=== PATIENT | male | born 1940 | race Caucasian/White ===

== ENCOUNTER → 2016-08-23 | Outpatient (CLI) | payer OTHER, MEDICARE ==
[~2016-08-23] MED LIST: ALEV220C2 PO; ASPI1TAB PO; ATOR40TA PO; GLIM4TAB PO; INVO300T PO; JANU50TA8 PO; KETO0.05 TOP; LEVE1INJ5 SQ; LISI40TAB PO
--- NOTE | 2016-08-23 07:12 | REP ---
Clinical: Preoperative assessment . Comparison: None . Technique: PA and lateral. Findings: The mediastinum and cardiac silhouette are normal. Airway appears patent and midline. The lung nowak demonstrate mild chronic-appearing basilar changes without acute consolidation, effusion, or pneumothorax. The skeletal structures are intact and normal. Impression: 1. No acute cardiopulmonary process. Signed by Arnaldo Truong MD 08/23/2016 07:03 A
[2016-08-23 07:51] LABS: CREATININE FOR GFR 1.42 MG/DL (0.70-1.30); GLOMERULAR FILTRATION RATE 51.9 (>42); POTASSIUM SERUM 4.4 MEQ/L (3.5-5.1)
--- NOTE | 2016-08-23 16:12 | ECGEPIP ---
Stationary ECG Study [facility] Test Date: 2016-08-23 Pat Name: JACQUIE MARSHALL Department: Room: - Gender: M Electrical Equipment Assembler: AGUSTO : 1940 Requested By: Liborio Son Order Number: [id number] Reading MD: Liborio Robbins Measurements Intervals [place] Rate: 72 P: 68 SD: 163 QRS: 56 QRSD: 101 T: 41 QT: 376 QTc: 413 Interpretive Statements SINUS RHYTHM Comparison tracing not on file Electronically Signed On 08-23-2016 16:12:30 EDT by Liborio Robbins
== END ==
LOC: M LAB 06:20
PROVIDERS: ATTEND Ophthalmology
DX: Z01.818 Encounter for other preprocedural examination (principal); H25.12 Age-related nuclear cataract, left eye; E11.9 Type 2 diabetes mellitus without complications; I10 Essential (primary) hypertension

== ENCOUNTER → 2016-09-08 | Day surgery (SDC) | payer OTHER, MEDICARE ==
[~2016-09-08] VITALS: Ht 180.3 cm; Wt 81.6 kg
[~2016-09-08] MED LIST changes: +ACETYLCHOLINE OPHTH SOLN 1% 2ML (MIOCHOL-E) As Ordered ONE; +BALANCED SALT IRRIGATION SOL 500ML GLASS BOTTLE (FOR OR EYE COMPOUND) As Ordered ONE; +BALANCED SALT IRRIGATION SOLUTION 500ML BAG (FOR OR EYE MACHINE) As Ordered ONE; +CEFUROXIME 1MG/0.1ML INTRACAMERAL INJ As Ordered ONE; +D5W/0.2% SODIUM CHLORIDE 250 ML IV ONE; +DUOVISC (0.50ML VISCOAT/0.55ML PROVISC) OPHTH KIT As Ordered ONE; +LIDOCAINE 0.75%/EPINEPHRINE 0.025% IN BSS 1ML SYR INTRACAMERAL (OR ONLY) As Ordered ONE; +LIDOCAINE 4% INJ 5 ML AMP As Ordered ONE; +MIDAZOLAM INJ 2 MG/2 ML VIAL (J2250) As Ordered ONE; +OFLOXACIN 0.3 % (OCUFLOX) OPTH SOL 5ML OS ONE; +PHENYLEPHRINE 2.5% OPHTH SOL 2ML OS ONE; +POVIDONE-IODINE 5% OPHTH PREP SOL 30ML As Ordered ONE; +PROPARACAINE 0.5% OPHTH SOL 15ML OS ONE; +TROPICAMIDE 1% OPHTH SOLN 2ML OS ONE; +fentaNYL 100 MCG/2 ML INJECTION (J3010) As Ordered ONE
[2016-09-08 15:50] VITALS: BP 118/69
--- NOTE | 2016-09-09 09:31 | RO ---
DATE OF PROCEDURE: 09/08/2016 PREOPERATIVE DIAGNOSIS: Visually significant nuclear sclerotic cataract left eye. POSTOPERATIVE DIAGNOSIS: Visually significant nuclear sclerotic cataract left eye. PROCEDURE: Cataract extraction with use of phacoemulsification, and placement of intraocular lens, AU00T0, 20.5, left eye. SURGEON: Philip Montoya DO ROUND BONER: ANESTHESIA: Local with monitored anesthesia care (MAC). COMPLICATIONS: None. POSTOPERATIVE CONDITION: Stable. INDICATION FOR SURGERY: Blurred vision left eye affecting patient's activities of daily living. DESCRIPTION OF PROCEDURE: The patient was seen in the preoperative area and properly identified. The correct operative eye was identified and marked. Attention was turned to that eye. The patient received topical antibiotics in the preoperative area. The patient then received topical dilating drops consisting of Tropicamide and Phenylephrine. The patient was then transferred to the operating room. The correct side was re-identified. The patient received topical anesthetics and antibiotics on the surface of the eye. The eye was prepped and draped in a sterile fashion. The upper and lower eyelids were isolated with Tegaderm tape, and the lids were held open with an adjustable speculum. Using a sideport blade, a paracentesis incision was made. Intraocular preservative-free lidocaine was then injected into the anterior chamber. Viscoelastic was then injected into the anterior chamber through the paracentesis. Using a 2.6 mm sharp-tipped keratome, the anterior chamber was entered via a temporal clear corneal incision. A continuous curvilinear capsulorrhexis was created with the aid of a 26g cystotome and utrata forceps. Hydrodissection was performed with balanced salt solution (BSS) on a blunt cannula until the nucleus was freely mobile. The crystalline lens was phacoemulsified and aspirated. Additional cohesive viscoelastic was placed into the capsular bag to deepen it. AU00T0, 20.5 lens D was placed into the capsular bag and confirmed by visualizing the continuous curvilinear capsulorrhexis. Additional irrigation and aspiration was used to remove cortical material and remaining viscoelastic. The clear corneal incision was hydrated with BSS on a blunt cannula. The lens was well positioned. The incisions were then tested for leaks and found to be negative. The eye was then palpated for appropriate pressure and adjusted accordingly with BSS. The eyelid speculum was carefully removed. A shield was then secured over the eye.. The patient tolerated the procedure well and was discharged to the recovery unit in a stable condition. MARVIN
== END | disposition home or self-care (01) ==
LOC: M SDC 12:11
PROVIDERS: ATTEND Ophthalmology
DX: H25.13 Age-related nuclear cataract, bilateral (principal); I10 Essential (primary) hypertension; E11.9 Type 2 diabetes mellitus without complications; E78.5 Hyperlipidemia, unspecified; Z88.2 Allergy status to sulfonamides; Z79.899 Other long term (current) drug therapy; Z87.891 Personal history of nicotine dependence
CPT/HCPCS: 66984; J2250; J3010

== ENCOUNTER → 2016-09-22 | Day surgery (SDC) | payer OTHER, MEDICARE ==
[~2016-09-22] VITALS: Ht 180.3 cm; Wt 81.6 kg
[~2016-09-22] MED LIST changes: -ATOR40TA PO; +ATOR40TA75 PO; -BALANCED SALT IRRIGATION SOL 500ML GLASS BOTTLE (FOR OR EYE COMPOUND) As Ordered ONE; -D5W/0.2% SODIUM CHLORIDE 250 ML IV ONE; +LR 500 ML IV ONE; +OFLOXACIN 0.3 % (OCUFLOX) OPTH SOL 5ML OD ONE; -OFLOXACIN 0.3 % (OCUFLOX) OPTH SOL 5ML OS ONE; +PHENYLEPHRINE 2.5% OPHTH SOL 2ML OD ONE; -PHENYLEPHRINE 2.5% OPHTH SOL 2ML OS ONE; +PROPARACAINE 0.5% OPHTH SOL 15ML OD ONE; -PROPARACAINE 0.5% OPHTH SOL 15ML OS ONE; +TROPICAMIDE 1% OPHTH SOLN 2ML OD ONE; -TROPICAMIDE 1% OPHTH SOLN 2ML OS ONE
[2016-09-22 15:34] VITALS: BP 111/63
--- NOTE | 2016-09-23 22:20 | RO ---
DATE OF PROCEDURE: 09/22/2016 PREOPERATIVE DIAGNOSIS: Visually significant nuclear sclerotic cataract right eye. POSTOPERATIVE DIAGNOSIS: Visually significant nuclear sclerotic cataract right eye. PROCEDURE: Cataract extraction with use of phacoemulsification, and placement of intraocular lens, AU00T0, 20.0 D, right eye. SURGEON: Philip Montoya DO COUTURIERE: ANESTHESIA: Local with monitored anesthesia care (MAC). COMPLICATIONS: None. POSTOPERATIVE CONDITION: Stable. INDICATION FOR SURGERY: Blurred vision right eye affecting patient's activities of daily living. DESCRIPTION OF PROCEDURE: The patient was seen in the preoperative area and properly identified. The correct operative eye was identified and marked. Attention was turned to that eye. The patient received topical antibiotics in the preoperative area. The patient then received topical dilating drops consisting of Tropicamide and Phenylephrine. The patient was then transferred to the operating room. The correct side was re-identified. The patient received topical anesthetics and antibiotics on the surface of the eye. The eye was prepped and draped in a sterile fashion. The upper and lower eyelids were isolated with Tegaderm tape, and the lids were held open with an adjustable speculum. Using a sideport blade, a paracentesis incision was made. Intraocular preservative-free lidocaine was then injected into the anterior chamber. Viscoelastic was then injected into the anterior chamber through the paracentesis. Using a 2.6 mm sharp-tipped keratome, the anterior chamber was entered via a temporal clear corneal incision. A continuous curvilinear capsulorrhexis was created with the aid of a 26g cystotome and utrata forceps. Hydrodissection was performed with balanced salt solution (BSS) on a blunt cannula until the nucleus was freely mobile. The crystalline lens was phacoemulsified and aspirated. Additional cohesive viscoelastic was placed into the capsular bag to deepen it. An AU00T0 20.0 D lens was placed into the capsular bag and confirmed by visualizing the continuous curvilinear capsulorrhexis. Additional irrigation and aspiration was used to remove cortical material and remaining viscoelastic. The clear corneal incision was hydrated with BSS on a blunt cannula. The lens was well positioned. The incisions were then tested for leaks and found to be negative. The eye was then palpated for appropriate pressure and adjusted accordingly with BSS. The eyelid speculum was carefully removed. A shield was placed over the eye. The patient tolerated the procedure well and was discharged to the recovery unit in a stable condition. MARVIN
== END | disposition home or self-care (01) ==
LOC: M SDC 13:14
PROVIDERS: ATTEND Ophthalmology
DX: H25.11 Age-related nuclear cataract, right eye (principal); E11.9 Type 2 diabetes mellitus without complications; I10 Essential (primary) hypertension; E78.5 Hyperlipidemia, unspecified; Z87.891 Personal history of nicotine dependence; Z79.899 Other long term (current) drug therapy; Z88.2 Allergy status to sulfonamides; Z79.82 Long term (current) use of aspirin
CPT/HCPCS: 66984; J2250; J3010

== ENCOUNTER 2017-07-06 09:42 | Day surgery (SDC) | payer BC, MEDICARE ==
[2017-07-06] MEDS: NS 1,000 ML IV (10:00)
[2017-07-06 10:56] LABS: BEDSIDE GLUCOSE 114 MG/DL (83-110)
[2017-07-06] MEDS ORDERED: LIDOCAINE 2% INJ 100 MG/5 ML SDV (FOR ANES.) As Ordered (11:34)
[2017-07-06] MEDS ORDERED: PROPOFOL 200 MG/20 ML VIAL As Ordered (11:34)
== END 2017-07-06 12:24 | disposition home or self-care (01) ==
LOC: M OPP 09:42
DX: Z12.11 Encounter for screening for malignant neoplasm of colon (principal); E10.9 Type 1 diabetes mellitus without complications; E78.00 Pure hypercholesterolemia, unspecified; Z79.4 Long term (current) use of insulin; Z79.82 Long term (current) use of aspirin; Z79.899 Other long term (current) drug therapy
CPT/HCPCS: 45378

== ENCOUNTER → 2021-09-10 | Outpatient (CLI) | payer BC, MEDICARE ==
[~2021-09-10] MED LIST changes: -ACETYLCHOLINE OPHTH SOLN 1% 2ML (MIOCHOL-E) As Ordered ONE; +ALEV220T22 PO; -ASPI1TAB PO; +ASPI81TA26 PO; -BALANCED SALT IRRIGATION SOLUTION 500ML BAG (FOR OR EYE MACHINE) As Ordered ONE; -CEFUROXIME 1MG/0.1ML INTRACAMERAL INJ As Ordered ONE; -DUOVISC (0.50ML VISCOAT/0.55ML PROVISC) OPHTH KIT As Ordered ONE; -GLIM4TAB PO; +GLIM4TAB5 PO; +HUMA100I5; -LIDOCAINE 0.75%/EPINEPHRINE 0.025% IN BSS 1ML SYR INTRACAMERAL (OR ONLY) As Ordered ONE; -LIDOCAINE 4% INJ 5 ML AMP As Ordered ONE; +LISI40TA4 PO; -LISI40TAB PO; -LR 500 ML IV ONE; -MIDAZOLAM INJ 2 MG/2 ML VIAL (J2250) As Ordered ONE; -OFLOXACIN 0.3 % (OCUFLOX) OPTH SOL 5ML OD ONE; -PHENYLEPHRINE 2.5% OPHTH SOL 2ML OD ONE; -POVIDONE-IODINE 5% OPHTH PREP SOL 30ML As Ordered ONE; -PROPARACAINE 0.5% OPHTH SOL 15ML OD ONE; -TROPICAMIDE 1% OPHTH SOLN 2ML OD ONE; -fentaNYL 100 MCG/2 ML INJECTION (J3010) As Ordered ONE
[2021-09-10 15:39] LABS: BASO # 0.2 10^3/uL (0.0-0.2); BASO % 1.5 % (0.0-1.0); EOS % 9.9 % (0.0-3.0); HEMATOCRIT 44.4 % (42.0-52.0); HEMOGLOBIN 14.4 g/dl (13.5-17.5); LYMPH # 1.7 10^3/uL (1.5-5.0); MEAN CORPUSCULAR HEMOGLOBIN 31.5 pg (27.0-33.0); MEAN CORPUSCULAR HGB CONC 32.4 g/dl (32.0-36.5); MEAN CORPUSCULAR VOLUME 97.2 fl (80.0-96.0); MONO # 0.9 10^3/uL (0.0-0.8); NEUTROPHILS # 6.2 10^3/uL (1.5-8.5); NEUTROPHILS % 62.1 % (36.0-66.0); PLATELET COUNT, AUTOMATED 309 10^3/uL (150-450); RED BLOOD COUNT 4.57 10^6/uL (4.30-6.10)
[2021-09-10 15:56] LABS: HEMOGLOBIN A1c 7.3 %
[2021-09-10 16:04] LABS: ALBUMIN 3.4 GM/DL (3.2-5.2); BILIRUBIN,TOTAL 0.9 MG/DL (0.2-1.0); CALCIUM LEVEL 8.9 MG/DL (8.8-10.2); CREATININE FOR GFR 1.74 MG/DL (0.70-1.30); GLOMERULAR FILTRATION RATE 40.5 (>42); POTASSIUM SERUM 4.7 MEQ/L (3.5-5.1)
== END ==
LOC: M PLALAB 11:00
PROVIDERS: ATTEND Family Medicine
DX: Z01.818 Encounter for other preprocedural examination (principal); Z79.899 Other long term (current) drug therapy

== ENCOUNTER 2021-09-13 14:41 | Inpatient (IN) | payer BC, MEDICARE ==
[~2021-09-13] VITALS: Ht 175.3 cm; Wt 74.6 kg
[~2021-09-13 14:41] MED LIST changes: -ALEV220T22 PO; -HUMA100I5
[2021-09-13] MEDS ORDERED: LR 1,000 ML IV SCH ×2 (14:45→21:20)
[2021-09-13] MEDS ORDERED: ALEV220T22 PO (15:29)
[2021-09-13] MEDS ORDERED: HUMA100I5 (15:33)
[2021-09-13] MEDS ORDERED: MIDAZOLAM INJ 2MG/2ML VIAL (J2250 PER 1MG) As Ordered ONE (19:46)
[2021-09-13] MEDS ORDERED: fentaNYL 100 MCG/2 ML INJECTION As Ordered ONE (19:46)
[2021-09-13] MEDS ORDERED: LIDOCAINE 2% W/EPINEPHRINE 20ML VIAL **PRES FREE As Ordered ONE (19:46)
[2021-09-13] MEDS ORDERED: propofoL 200 MG/20 ML VIAL As Ordered ONE (19:46)
[2021-09-13] MEDS ORDERED: BUPIVACAINE HCL 0.25% 30ML VIAL As Ordered ONE (19:48)
[2021-09-13] MEDS ORDERED: ceFAZolin 1GM VIAL (J0690 PER 500MG) As Ordered ONE (20:02)
[2021-09-13] MEDS ORDERED: VANCOMYCIN 1000MG/20ML VIAL As Ordered ONE (20:02)
[2021-09-13] MEDS ORDERED: ACETAMINOPHEN 1000MG 100ML IV BTL (OFIRMEV) (J0131 PER 10MG) As Ordered ONE (20:10)
[2021-09-13] MEDS ORDERED: dexameTHASONE 4 MG/ML 1ML VIAL (J1100 PER 1MG) As Ordered ONE (20:11)
[2021-09-13] MEDS ORDERED: ONDANSETRON 4MG 2ML VIAL As Ordered ONE (20:11)
[2021-09-13] MEDS ORDERED: PHENYLephrine 500MCG 5ML (100MCG/ML) SYRINGE As Ordered ONE (20:16)
[2021-09-13] MEDS ORDERED: PERCOCET 5MG/325MG TAB PO PRN (21:20)
[2021-09-13] MEDS ORDERED: MORPHINE 4 MG/ML 1ML VIAL/SYRINGE IV PRN (21:30)
[2021-09-13] MEDS ORDERED: IBUPROFEN 600MG TAB PO PRN (21:30)
[2021-09-13] MEDS ORDERED: oxyCODONE 5MG TAB PO PRN (21:30)
[2021-09-13] MEDS ORDERED: ACETAMINOPHEN TAB 650MG DOSE (2X325MG) PO PRN (21:30)
[2021-09-13 22:00] VITALS: BP 138/76
[2021-09-13 22:30] VITALS: BP 124/98
[2021-09-13] MEDS ORDERED: MAALOX 30 ML SUSP *UDC PO PRN (22:40)
[2021-09-13] MEDS ORDERED: GLUCAGON INJ 1MG VIAL SC PRN (22:40)
[2021-09-13] MEDS ORDERED: GLUCOSE 4GM CHEW TABLET PO PRN (22:40)
[2021-09-13] MEDS ORDERED: DEXTROSE 50% 50 ML SYRINGE IV PRN (22:40)
[2021-09-13] MEDS ORDERED: MOM 30ML SUSPENSION UDC PO PRN (22:40)
[2021-09-13] MEDS: PIPERACILLIN/TAZOBACTAM SOD 2.25 GM in D5W MINI-BAG PLUS 50 ML IV SCH (23:36)
[2021-09-13] MEDS: INSULIN LISPRO (NovoLOG) PER UNIT SC SCH (23:41)
[2021-09-14] VITALS (12 sets, daily range): BP systolic 95–132; BP diastolic 52–73; O2SAT 95–98
[2021-09-14 00:16] LABS: BASO # 0.1 10^3/uL (0.0-0.2); BASO % 0.9 % (0.0-1.0); EOS # 0.2 10^3/uL (0.0-0.5); EOS % 1.3 % (0.0-3.0); HEMATOCRIT 44.8 % (42.0-52.0); HEMOGLOBIN 14.1 g/dl (13.5-17.5); LYMPH # 0.7 10^3/uL (1.5-5.0); MEAN CORPUSCULAR HEMOGLOBIN 30.5 pg (27.0-33.0); MEAN CORPUSCULAR HGB CONC 31.5 g/dl (32.0-36.5); MONO # 0.2 10^3/uL (0.0-0.8); MONO % 1.1 % (2.0-8.0); NEUTROPHILS # 12.3 10^3/uL (1.5-8.5); NEUTROPHILS % 90.8 % (36.0-66.0); PLATELET COUNT, AUTOMATED 261 10^3/uL (150-450); RED BLOOD COUNT 4.62 10^6/uL (4.30-6.10); WHITE BLOOD COUNT 13.5 10^3/uL (4.0-10.0)
[2021-09-14 00:32] LABS: ALBUMIN 3.3 GM/DL (3.2-5.2); BILIRUBIN,TOTAL 0.7 MG/DL (0.2-1.0); CREATININE FOR GFR 1.33 MG/DL (0.70-1.30); GLOMERULAR FILTRATION RATE 55.2 (>42); MAGNESIUM LEVEL 1.9 MG/DL (1.8-2.4); POTASSIUM SERUM 4.6 MEQ/L (3.5-5.1); TOTAL PROTEIN 6.8 GM/DL (6.4-8.2)
[2021-09-14] MEDS: PIPERACILLIN/TAZOBACTAM SOD 2.25 GM in D5W MINI-BAG PLUS 50 ML IV SCH (04:56)
[2021-09-14 06:07] LABS: HEMATOCRIT 41.4 % (42.0-52.0); HEMOGLOBIN 13.7 g/dl (13.5-17.5); MEAN CORPUSCULAR HEMOGLOBIN 31.6 pg (27.0-33.0); MEAN CORPUSCULAR HGB CONC 33.1 g/dl (32.0-36.5); MEAN CORPUSCULAR VOLUME 95.4 fl (80.0-96.0); PLATELET COUNT, AUTOMATED 294 10^3/uL (150-450); RED BLOOD COUNT 4.34 10^6/uL (4.30-6.10); WHITE BLOOD COUNT 8.1 10^3/uL (4.0-10.0)
[2021-09-14 06:32] LABS: C REACTIVE PROTEIN QUANTITATIV 0.3 MG/DL (0.00-0.30); CALCIUM LEVEL 9.6 MG/DL (8.8-10.2); CREATININE FOR GFR 1.32 MG/DL (0.70-1.30); GLOMERULAR FILTRATION RATE 55.7 (>42)
[2021-09-14] MEDS: ASPIRIN 81MG ENTERIC TABLET PO SCH (07:42)
[2021-09-14] MEDS: INSULIN LISPRO (NovoLOG) PER UNIT SC SCH ×4 (07:42→20:26)
[2021-09-14] MEDS: lisinopriL 40MG TAB PO SCH (09:00)
[2021-09-14] MEDS: VANCOMYCIN HCL 1,000 MG, VIAL MATE ADAPTER 1 EACH in D5W 250 ML IV SCH ×2 (09:26→20:25)
[2021-09-14] MEDS: PIPERACILLIN/TAZOBACTAM SOD 3.375 GM in D5W MINI-BAG PLUS 50 ML IV SCH ×3 (11:57→22:43)
[2021-09-14] MEDS: ENOXAPARIN 40MG/0.4ML SYRINGE (J1650 PER 10MG) SC SCH (20:25)
[2021-09-14] MEDS: LEVEMIR (INSULIN DETEMIR) 1 UNITS/0.01ML SC SCH (20:26)
[2021-09-14] MEDS: ATORVASTATIN 20 MG TAB PO SCH (20:26)
[2021-09-15] MEDS: PIPERACILLIN/TAZOBACTAM SOD 3.375 GM in D5W MINI-BAG PLUS 50 ML IV SCH ×2 (05:10→10:45)
[2021-09-15 06:00] VITALS: BP 112/63
[2021-09-15 06:40] LABS: HEMATOCRIT 43.2 % (42.0-52.0); HEMOGLOBIN 14.7 g/dl (13.5-17.5); MEAN CORPUSCULAR VOLUME 94.1 fl (80.0-96.0); PLATELET COUNT, AUTOMATED 312 10^3/uL (150-450); RED BLOOD COUNT 4.59 10^6/uL (4.30-6.10); WHITE BLOOD COUNT 9.9 10^3/uL (4.0-10.0)
[2021-09-15 07:05] LABS: C REACTIVE PROTEIN QUANTITATIV 0.3 MG/DL (0.00-0.30); CALCIUM LEVEL 9.5 MG/DL (8.8-10.2); CREATININE FOR GFR 1.38 MG/DL (0.70-1.30); GLOMERULAR FILTRATION RATE 52.9 (>42); POTASSIUM SERUM 4.1 MEQ/L (3.5-5.1)
[2021-09-15] MEDS: ASPIRIN 81MG ENTERIC TABLET PO SCH (08:07)
[2021-09-15] MEDS: INSULIN LISPRO (NovoLOG) PER UNIT SC SCH ×4 (08:07→20:55)
[2021-09-15] MEDS: lisinopriL 40MG TAB PO SCH (08:08)
[2021-09-15 10:16] VITALS: BP 107/57
[2021-09-15] MEDS ORDERED: FUROSEMIDE 20MG/2ML VIAL (J1940) IV ONE (10:30)
[2021-09-15 14:00] VITALS: BP 105/60
[2021-09-15 18:10] VITALS: BP 109/59
[2021-09-15 20:30] VITALS: BP 106/61
[2021-09-15] MEDS: ATORVASTATIN 20 MG TAB PO SCH (20:54)
[2021-09-15] MEDS: ENOXAPARIN 40MG/0.4ML SYRINGE (J1650 PER 10MG) SC SCH (20:55)
[2021-09-15] MEDS: LEVEMIR (INSULIN DETEMIR) 1 UNITS/0.01ML SC SCH (20:55)
[2021-09-16 05:38] VITALS: BP 106/62
[2021-09-16 07:40] LABS: HEMATOCRIT 45.6 % (42.0-52.0); MEAN CORPUSCULAR HEMOGLOBIN 31.4 pg (27.0-33.0); MEAN CORPUSCULAR HGB CONC 32.9 g/dl (32.0-36.5); MEAN CORPUSCULAR VOLUME 95.6 fl (80.0-96.0); PLATELET COUNT, AUTOMATED 322 10^3/uL (150-450); RED BLOOD COUNT 4.77 10^6/uL (4.30-6.10); WHITE BLOOD COUNT 8.4 10^3/uL (4.0-10.0)
[2021-09-16 07:58] LABS: C REACTIVE PROTEIN QUANTITATIV 0.3 MG/DL (0.00-0.30); CALCIUM LEVEL 9.4 MG/DL (8.8-10.2); CREATININE FOR GFR 1.35 MG/DL (0.70-1.30); GLOMERULAR FILTRATION RATE 54.3 (>42); POTASSIUM SERUM 4.1 MEQ/L (3.5-5.1)
[2021-09-16 08:00] VITALS: BP 102/56
[2021-09-16] MEDS: INSULIN LISPRO (NovoLOG) PER UNIT SC SCH ×2 (08:03→11:49)
[2021-09-16] MEDS: lisinopriL 40MG TAB PO SCH (08:29)
[2021-09-16] MEDS: ASPIRIN 81MG ENTERIC TABLET PO SCH (08:29)
[2021-09-16] MEDS ORDERED: FUROSEMIDE 20MG/2ML VIAL (J1940) IV ONE (08:45)
[2021-09-16 09:32] LABS: VANCOMYCIN RANDOM 11.9 UG/ML
[2021-09-16] MEDS ORDERED: LINE1TAB6 PO (09:34)
[2021-09-16] MEDS ORDERED: VANCOMYCIN HCL 1,000 MG, VIAL MATE ADAPTER 1 EACH in NS 250 ML IV SCH (10:00)
[2021-09-16 12:34] LABS: CRYSTALS, BODY FLUID NONE SEEN (NONE SEEN); SOURCE, BODY FLUID CRYSTALS RT ELBOW
[2021-09-16 14:00] VITALS: BP 101/55
== END 2021-09-16 17:30 | disposition home health service (06) | DRG 315 ==
LOC: M SDC 14:41 → M OR 22:15 → EEVIPCON 22:15 → M MS5PR 22:16
PROVIDERS: ADMIT Orthopaedic Surgery Hand Surgery; ATTEND Orthopaedic Surgery Hand Surgery
PROC: 0PBK0ZZ Excision of Right Ulna, Open Approach (ICD-10-PCS; 2021-09-13)
PROC: 0MB30ZZ Excision of Right Elbow Bursa and Ligament, Open Approach (ICD-10-PCS; principal; 2021-09-13 16:00)
DX: M70.21 Olecranon bursitis, right elbow (principal); I10 Essential (primary) hypertension; E11.9 Type 2 diabetes mellitus without complications; E78.5 Hyperlipidemia, unspecified; Z79.82 Long term (current) use of aspirin; Z79.4 Long term (current) use of insulin; Z79.1 Long term (current) use of non-steroidal anti-inflammatories (NSAID); Z79.899 Other long term (current) drug therapy; Z88.2 Allergy status to sulfonamides; B95.62 Methicillin resistant Staphylococcus aureus infection as the cause of diseases classified elsewhere

== ENCOUNTER → 2021-09-28 | Outpatient (CLI) | payer BC, MEDICARE ==
[~2021-09-28] MED LIST changes: +ALEV220T22 PO; +HUMA100I5; +LINE1TAB6 PO
[2021-09-28 15:08] LABS: BASO # 0.1 10^3/uL (0.0-0.2); BASO % 1.7 % (0.0-1.0); EOS # 0.5 10^3/uL (0.0-0.5); EOS % 5.3 % (0.0-3.0); HEMATOCRIT 45.6 % (42.0-52.0); HEMOGLOBIN 14.9 g/dl (13.5-17.5); LYMPH # 1.6 10^3/uL (1.5-5.0); LYMPH % 18.5 % (24.0-44.0); MEAN CORPUSCULAR HGB CONC 32.7 g/dl (32.0-36.5); MEAN CORPUSCULAR VOLUME 94.8 fl (80.0-96.0); MONO # 0.7 10^3/uL (0.0-0.8); NEUTROPHILS # 5.6 10^3/uL (1.5-8.5); NEUTROPHILS % 66.1 % (36.0-66.0); PLATELET COUNT, AUTOMATED 227 10^3/uL (150-450); RED BLOOD COUNT 4.81 10^6/uL (4.30-6.10); WHITE BLOOD COUNT 8.4 10^3/uL (4.0-10.0)
[2021-09-28 15:47] LABS: ERYTHROCYTE SEDIMENTATION RATE 4 mm/hr (0-20)
== END ==
LOC: M PLALAB 11:55
PROVIDERS: ATTEND Internal Medicine Infectious Disease
DX: M70.21 Olecranon bursitis, right elbow (principal)

== ENCOUNTER → 2021-09-30 | Outpatient (CLI) | payer BC, MEDICARE | LOC: M SOG 13:34 | PROVIDERS: ATTEND Orthopaedic Surgery Hand Surgery | DX: M17.0 Bilateral primary osteoarthritis of knee (principal) ==

== ENCOUNTER → 2021-10-14 | Outpatient (REF) | payer BC, MEDICARE | LOC: M SFHCPLAZ 10:16 | PROVIDERS: ATTEND Internal Medicine Infectious Disease | DX: H60.502 Unspecified acute noninfective otitis externa, left ear (principal) ==

== ENCOUNTER → 2021-11-19 | Outpatient (REF) | payer BC, MEDICARE | LOC: M LAB REF 16:34 | PROVIDERS: ATTEND Otolaryngology | DX: H60.92 Unspecified otitis externa, left ear (principal) ==

== ENCOUNTER → 2021-11-26 | Outpatient (CLI) | payer BC, MEDICARE ==
[2021-11-26 14:17] LABS: CREATININE FOR GFR 1.4 MG/DL (0.70-1.30)
== END ==
LOC: M WUC 09:07
PROVIDERS: ATTEND Otolaryngology
DX: H60.92 Unspecified otitis externa, left ear (principal)

== ENCOUNTER → 2021-12-02 | Outpatient (CLI) | payer BC, MEDICARE | LOC: M RAD 13:41 | PROVIDERS: ATTEND Otolaryngology | DX: H60.92 Unspecified otitis externa, left ear (principal) ==

== ENCOUNTER → 2021-12-16 | Outpatient (REF) | payer BC, MEDICARE | LOC: M LAB REF 08:08 | PROVIDERS: ATTEND Otolaryngology | DX: H60.92 Unspecified otitis externa, left ear (principal) ==

== ENCOUNTER → 2022-02-01 | Outpatient (REF) | payer BC, MEDICARE | LOC: M LAB REF 17:20 | PROVIDERS: ATTEND Otolaryngology | DX: H60.92 Unspecified otitis externa, left ear (principal) ==

== ENCOUNTER 2023-09-24 10:11 | Inpatient (IN) | payer BC, MEDICARE ==
[~2023-09-24] VITALS: Ht 172.7 cm; Wt 73.1 kg
[~2023-09-24 10:11] MED LIST changes: -HUMA100I5; +HUMA100I5 SQ; +INSU100I6 SQ; -LEVE1INJ5 SQ
[2023-09-24] MEDS: NS 1,000 ML IV SCH (11:25)
[2023-09-24 11:47] LABS: BASO # 0.1 10^3/uL (0.0-0.2); BASO % 0.5 % (0.0-1.0); EOS # 0.1 10^3/uL (0.0-0.5); EOS % 0.6 % (0.0-3.0); HEMATOCRIT 49.2 % (42.0-52.0); HEMOGLOBIN 16.5 g/dl (13.5-17.5); LYMPH # 0.5 10^3/uL (1.5-5.0); LYMPH % 2.7 % (24.0-44.0); MEAN CORPUSCULAR HGB CONC 33.5 g/dl (32.0-36.5); MEAN CORPUSCULAR VOLUME 95.5 fl (80.0-96.0); MONO # 1.6 10^3/uL (0.0-0.8); MONO % 8.3 % (2.0-8.0); NEUTROPHILS # 16.9 10^3/uL (1.5-8.5); NEUTROPHILS % 86.8 % (36.0-66.0); PLATELET COUNT, AUTOMATED 213 10^3/uL (150-450); RED BLOOD COUNT 5.15 10^6/uL (4.30-6.10); WHITE BLOOD COUNT 19.4 10^3/uL (4.0-10.0)
[2023-09-24 12:11] LABS: LIPASE 33 U/L (12-53)
[2023-09-24 12:13] LABS: ALBUMIN 2.8 G/DL (3.2-5.2); ALKALINE PHOSPHATASE 85 U/L (46-116); ALT/SGPT 22 U/L (7.0-40); AST/SGOT 24 U/L (<34); BILIRUBIN,DIRECT 0.5 MG/DL (<0.4); BILIRUBIN,TOTAL 1.2 MG/DL (0.3-1.2); BLOOD UREA NITROGEN 31 MG/DL (9-23); CALCIUM LEVEL 8.9 MG/DL (8.3-10.6); CARBON DIOXIDE LEVEL 18 MMOL/L (20-31); CHLORIDE LEVEL 103 MMOL/L (98-107); CREATININE FOR GFR 1.08 MG/DL (0.70-1.30); GLOMERULAR FILTRATION RATE > 60.0 (>35); GLUCOSE, FASTING 154 MG/DL (74-106); POTASSIUM SERUM 4.3 MMOL/L (3.5-5.1); SODIUM LEVEL 134 MMOL/L (136-145); TOTAL PROTEIN 6.4 G/DL (5.7-8.2)
[2023-09-24] MEDS ORDERED: ISOVUE-370 76% 100ML VIAL As Ordered ONE (12:52)
[2023-09-24] MEDS: PIPERACILLIN/TAZOBACTAM SOD 4.5 GM in D5W MINI-BAG PLUS 50 ML IV ONE (13:43)
[2023-09-24] MEDS ORDERED: FURO20TA2 PO (14:27)
[2023-09-24] MEDS ORDERED: INSUDET SC (14:27)
[2023-09-24] MEDS ORDERED: JARD1TAB PO (14:27)
[2023-09-24] MEDS ORDERED: CYAN-1 PO (14:27)
[2023-09-24] MEDS ORDERED: HOME MED LIST COMPLETE! XX SCH (14:30)
[2023-09-24 14:51] LABS: PROCALCITONIN 1.72 ng/ml
[2023-09-24] MEDS: PANTOPRAZOLE 40MG VIAL IV ONE (15:21)
[2023-09-24] MEDS ORDERED: GLUCAGON INJ 1MG VIAL SC PRN (15:35)
[2023-09-24] MEDS ORDERED: GLUCOSE 4 GM CHEW PO PRN (15:35)
[2023-09-24] MEDS ORDERED: DEXTROSE 50% 50ML SYRINGE IV PRN (15:35)
[2023-09-24] MEDS ORDERED: ONDANSETRON 4MG 2ML VIAL IV PRN (15:40)
[2023-09-24 15:45] VITALS: BP 127/71; TEMP 97.5; O2SAT 94
[2023-09-24] MEDS: LR 1,000 ML IV SCH (15:58)
[2023-09-24] MEDS: SUCRALFATE SUSP 1GM/10ML UD PO SCH (17:32)
[2023-09-24] MEDS: INSULIN LISPRO (NovoLOG) PER UNIT SC SCH (17:33)
[2023-09-24] MEDS: PIPERACILLIN/TAZOBACTAM SOD 4.5 GM in D5W MINI-BAG PLUS 50 ML IV SCH (19:55)
[2023-09-24 20:48] VITALS: BP 126/71; TEMP 98.4; O2SAT 94
[2023-09-24] MEDS: ATORVASTATIN 20 MG TAB PO SCH (20:50)
[2023-09-24] MEDS: PANTOPRAZOLE 40MG VIAL IV SCH (20:51)
[2023-09-25 04:23] VITALS: BP 131/72; TEMP 97.5; O2SAT 96
[2023-09-25 06:29] LABS: HEMATOCRIT 48.1 % (42.0-52.0); HEMOGLOBIN 16.3 g/dl (13.5-17.5); MEAN CORPUSCULAR HEMOGLOBIN 32.5 pg (27.0-33.0); MEAN CORPUSCULAR HGB CONC 33.9 g/dl (32.0-36.5); MEAN CORPUSCULAR VOLUME 95.8 fl (80.0-96.0); PLATELET COUNT, AUTOMATED 231 10^3/uL (150-450); RED BLOOD COUNT 5.02 10^6/uL (4.30-6.10); WHITE BLOOD COUNT 18.7 10^3/uL (4.0-10.0)
[2023-09-25 07:01] LABS: ALBUMIN 2.4 G/DL (3.2-5.2); ALKALINE PHOSPHATASE 99 U/L (46-116); ALT/SGPT 39 U/L (7.0-40); AST/SGOT 52 U/L (<34); BILIRUBIN,TOTAL 1.5 MG/DL (0.3-1.2); BLOOD UREA NITROGEN 27 MG/DL (9-23); CARBON DIOXIDE LEVEL 18 MMOL/L (20-31); CHLORIDE LEVEL 106 MMOL/L (98-107); CREATININE FOR GFR 1.03 MG/DL (0.70-1.30); GLOMERULAR FILTRATION RATE > 60.0 (>35); GLUCOSE, FASTING 171 MG/DL (74-106); POTASSIUM SERUM 4.2 MMOL/L (3.5-5.1); SODIUM LEVEL 139 MMOL/L (136-145); TOTAL PROTEIN 5.9 G/DL (5.7-8.2)
[2023-09-25 07:25] LABS: PROCALCITONIN 1.33 ng/ml
[2023-09-25] MEDS: ENOXAPARIN 40MG/0.4ML SYRINGE (J1650 PER 10MG) SC SCH (07:52)
[2023-09-25 12:00] VITALS: BP 129/78; TEMP 97.3; O2SAT 92
[2023-09-25 20:00] VITALS: BP 141/80; TEMP 98.6; O2SAT 94
[2023-09-26 04:00] VITALS: BP_SYST 134; BP_DIAS 74; BP_DIAS 76; TEMP 98.1; TEMP 98.3; O2SAT 94
[2023-09-26 08:31] LABS: VENOUS BASE EXCESS -4.1 (-2.0-2.0); VENOUS HCO3 20.7 MMOL/L (23.0-27.0); VENOUS O2 SATURATION 70.7 % (60.0-80.0); VENOUS PARTIAL PRESSURE CO2 37.5 mmHg (38.0-50.0); VENOUS PARTIAL PRESSURE O2 36.9 mmHg (30.0-50.0); VENOUS STANDARD HCO3 20.4 MMOL/L; VENOUS TOTAL CO2 21.9 MMOL/L (24.0-28.0)
[2023-09-26 09:58] LABS: HEMATOCRIT 48.9 % (42.0-52.0); HEMOGLOBIN 16.5 g/dl (13.5-17.5); MEAN CORPUSCULAR HEMOGLOBIN 32.2 pg (27.0-33.0); MEAN CORPUSCULAR HGB CONC 33.7 g/dl (32.0-36.5); MEAN CORPUSCULAR VOLUME 95.3 fl (80.0-96.0); PLATELET COUNT, AUTOMATED 272 10^3/uL (150-450); RED BLOOD COUNT 5.13 10^6/uL (4.30-6.10); WHITE BLOOD COUNT 19.4 10^3/uL (4.0-10.0)
[2023-09-26 10:05] LABS: BLOOD UREA NITROGEN 22 MG/DL (9-23); CALCIUM LEVEL 9.2 MG/DL (8.3-10.6); CARBON DIOXIDE LEVEL 24 MMOL/L (20-31); CHLORIDE LEVEL 103 MMOL/L (98-107); CREATININE FOR GFR 0.99 MG/DL (0.70-1.30); GLOMERULAR FILTRATION RATE > 60.0 (>35); GLUCOSE, FASTING 188 MG/DL (74-106); POTASSIUM SERUM 3.7 MMOL/L (3.5-5.1); SODIUM LEVEL 138 MMOL/L (136-145)
[2023-09-26 12:00] VITALS: BP 133/76; TEMP 97.3; O2SAT 92
[2023-09-26] MEDS ORDERED: AMOX875T2 PO (12:17)
[2023-09-26] MEDS ORDERED: SUCR1TA PO (12:17)
[2023-09-26] MEDS ORDERED: PANT40TA29 PO (12:17)
[2023-09-26] MEDS ORDERED: ASPI81TA26 PO (12:20)
== END 2023-09-26 14:15 | disposition home or self-care (01) | DRG 241 ==
LOC: M ED 10:11 → M ED INP 14:05 → EEVIPCON 14:05 → M MSPAV 15:32 → OBSVTOIN 16:27
PROVIDERS: ADMIT Internal Medicine; ATTEND Student in an Organized Health Care Education/Training Program
DX: K29.80 Duodenitis without bleeding (principal); E87.20 Acidosis, unspecified; D64.9 Anemia, unspecified; E11.9 Type 2 diabetes mellitus without complications; K27.9 Peptic ulcer, site unspecified, unspecified as acute or chronic, without hemorrhage or perforation; E78.5 Hyperlipidemia, unspecified; I10 Essential (primary) hypertension; Z79.82 Long term (current) use of aspirin; Z79.4 Long term (current) use of insulin; Z79.899 Other long term (current) drug therapy; Z88.2 Allergy status to sulfonamides; Z11.52 Encounter for screening for COVID-19

== ENCOUNTER → 2023-10-02 | Outpatient (CLI) | payer BC, MEDICARE ==
[~2023-10-02] MED LIST changes: +AMOX875T2 PO; +CYAN-1 PO; +FURO20TA2 PO; +INSUDET SC; +JARD1TAB PO; +PANT40TA29 PO; +SUCR1TA PO
[2023-10-02 15:29] LABS: APPEARANCE, URINE CLEAR (CLEAR); BACTERIA, URINE AUTO NEGATIVE (NEGATIVE); BILIRUBIN, URINE AUTO NEGATIVE (NEGATIVE); BLOOD, URINE BLOOD 1+ (NEGATIVE); COLOR, URINE YELLOW (YELLOW); GLUCOSE, URINE (UA) AUTO 3+ mg/dL (NEGATIVE); KETONE, URINE AUTO NEGATIVE (NEGATIVE); LEUKOCYTE ESTERASE, URINE AUTO NEGATIVE (NEGATIVE); NITRITE, URINE AUTO NEGATIVE (NEGATIVE); PROTEIN, URINE AUTO NEGATIVE (NEGATIVE); RBC, URINE AUTO 0 /HPF (0-3); SPECIFIC GRAVITY URINE AUTO 1.018 (1.002-1.035); SQUAMOUS EPITHELIAL CELL UR AU 0 /HPF (0-6); UROBILINOGEN, URINE AUTO 0.2 mg/dL (0.0-2.0); WBC, URINE AUTO 1 /HPF (0-3)
[2023-10-02 15:35] LABS: BASO # 0.1 10^3/uL (0.0-0.2); BASO % 0.7 % (0.0-1.0); EOS # 0.6 10^3/uL (0.0-0.5); EOS % 3.7 % (0.0-3.0); HEMATOCRIT 47.1 % (42.0-52.0); HEMOGLOBIN 15.7 g/dl (13.5-17.5); LYMPH # 1.3 10^3/uL (1.5-5.0); LYMPH % 7.8 % (24.0-44.0); MEAN CORPUSCULAR HEMOGLOBIN 31.4 pg (27.0-33.0); MEAN CORPUSCULAR HGB CONC 33.3 g/dl (32.0-36.5); MEAN CORPUSCULAR VOLUME 94.2 fl (80.0-96.0); MONO # 1.1 10^3/uL (0.0-0.8); MONO % 6.6 % (2.0-8.0); NEUTROPHILS # 12.6 10^3/uL (1.5-8.5); NEUTROPHILS % 79.2 % (36.0-66.0); PLATELET COUNT, AUTOMATED 382 10^3/uL (150-450)
[2023-10-02 15:46] LABS: ERYTHROCYTE SEDIMENTATION RATE 112 mm/hr (0-20)
[2023-10-02 16:04] LABS: ALBUMIN 2.2 G/DL (3.2-5.2); ALKALINE PHOSPHATASE 169 U/L (46-116); ALT/SGPT 37 U/L (7.0-40); AST/SGOT 28 U/L (<34); BILIRUBIN,TOTAL 0.9 MG/DL (0.3-1.2); BLOOD UREA NITROGEN 27 MG/DL (9-23); CALCIUM LEVEL 8.8 MG/DL (8.3-10.6); CARBON DIOXIDE LEVEL 28 MMOL/L (20-31); CHLORIDE LEVEL 101 MMOL/L (98-107); CREATININE FOR GFR 1.14 MG/DL (0.70-1.30); GLOMERULAR FILTRATION RATE > 60.0 (>35); GLUCOSE, FASTING 66 MG/DL (74-106); POTASSIUM SERUM 3.9 MMOL/L (3.5-5.1); SODIUM LEVEL 136 MMOL/L (136-145); TOTAL PROTEIN 6.2 G/DL (5.7-8.2)
== END ==
LOC: M LAB 14:11
PROVIDERS: ATTEND Family Medicine
DX: R10.11 Right upper quadrant pain (principal); R60.9 Edema, unspecified; D72.829 Elevated white blood cell count, unspecified

== ENCOUNTER → 2023-12-18 | Outpatient (CLI) | payer MEDICARE, BC | LOC: M WUC 14:47 | PROVIDERS: ATTEND Family Medicine | DX: M25.552 Pain in left hip (principal) ==

== ENCOUNTER → 2025-02-19 | Outpatient (CLI) | payer OTHER, MEDICARE ==
[~2025-02-19] MED LIST changes: +LISI40TA10 PO; -LISI40TA4 PO
== END ==
LOC: M CARPUL 08:48
PROVIDERS: ATTEND Family Medicine
DX: I35.0 Nonrheumatic aortic (valve) stenosis (principal)